=== PATIENT | female | born 1975 | race Caucasian/White ===

== ENCOUNTER 2018-11-16 09:32 | Emergency (ER) | payer MEDICARE ==
[~2018-11-16] VITALS: Ht 157.5 cm; Wt 49.9 kg
[~2018-11-16 09:32] MED LIST: ACETAMINOPHEN-1 EAC1 PO; BACTRIM DS TAB1 EAC1 PO; CARISOPRODOL 3350 MG PO; CIPROFLOXIN HC2.5 M1 OPHTHALMIC; ERYTHROMYCIN E3.5 G1 OPHTHALMIC; EXCEDRIN CAPLE1 EACH PO; FLEXERIL PO; HYDROCODONE-AP1 EAC6 PO; IBUPROFEN 200200 M1 PO; IBUPROFEN 800800 M1; IBUPROFEN 800800 MG PO; KEFLEX500 M1 PO; KEFLEX500 MG PO; LIORESAL 10 MG10 MG PO; MEDROLDOSEPACK PO; MOBIC7.5 MG PO; NOHOMEMEDICATIONS; NORCO 5-325 TA1 EACH PO; PYRIDIUM200 M2 PO; ROBAXIN 750 MG750 M1 PO; ROBAXIN500 MG PO; ULTRAM50 MG PO; VALIUM2 MG PO; ZOFRAN ODT4 MG PO; ZPAK PO
[2018-11-16 09:36] VITALS: BP 143/96
[2018-11-16] MEDS ORDERED: ULTRAM 50MG TAB50 MG PO (09:50)
[2018-11-16] MEDS ORDERED: KEFLEX500 M1 PO (09:50)
[2018-11-16] MEDS ORDERED: BACTRIM DS TAB1 EACH PO (09:50)
== END 2018-11-16 10:02 | disposition home or self-care (01) ==
LOC: M.ERS 09:32
DX: L03.116 Cellulitis of left lower limb (principal); F17.210 Nicotine dependence, cigarettes, uncomplicated; Z91.030 Bee allergy status; Z88.0 Allergy status to penicillin; Z88.8 Allergy status to other drugs, medicaments and biological substances; Z91.048 Other nonmedicinal substance allergy status